=== PATIENT | male | born 1965 | race Caucasian/White ===

== ENCOUNTER 2022-06-23 11:16 | Inpatient (IN) | payer OTHER ==
[~2022-06-23] VITALS: Ht 172.7 cm; Wt 88.9 kg
[2022-06-23] VITALS (9 sets, daily range): BP systolic 97–160; BP diastolic 57–89
--- NOTE | 2022-06-23 11:18 | NUR ---
PT BIBA TO BED 7
--- NOTE | 2022-06-23 11:36 | NUR ---
RAD AT BEDSIDE
--- NOTE | 2022-06-23 11:38 | NUR ---
MD PUCKETT AT BEDSIDE FOR EVALUATION
--- NOTE | 2022-06-23 11:40 | NUR ---
54YO MALE PT BIBA D/T OVERDOSE. PER EMS, PT FOUND UNRESPONSIVE IN CAR AND GIVEN 0.5MG NARCAN INTRANASAL W/ IMPROVEMENT OF GCF 14. PD REPORTS UNKNOWN WHITE POWDER SUBSTANCE WAS FOUND IN PT CAR. AT ARRIVAL, PT AAOX3 W/ MUMBLED DELAYED SPEECH. AROUSABLE TO TOUCH AND VOICE. CONTINUED ON 4L VIA NC- O2 98%. 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 [place] [employer] AT BEDSIDE HX: DIABETES, HLD NKA Addendum: 06/23/22 at 1401 by [facility]P [place] [employer] OFFICER Denisse RICHARDSON #[id number] CASE #[id number]
[2022-06-23] MEDS ORDERED: NALOXONE 0.4 MG/ML VIAL IVP ONE ×3 (11:45→13:30)
--- NOTE | 2022-06-23 12:06 | NUR ---
pt encouraged to give urine sample. urinal provided
--- NOTE | 2022-06-23 12:38 | NUR ---
DRUG RESOURCE PACKET PROVIDED TO PT BY HUSSAIN BURNETT
--- NOTE | 2022-06-23 12:40 | NUR ---
PT SLEEPY YET EASILY AROUSABLE TO VOICE. RR 5-7. PT MEDICATED WITH NARCAN. PT ON CARDIAC/O2 MONITOR.
[2022-06-23] MEDS ORDERED: ED NON STOCK ORDER 1 EA MISC IV ONE (12:50)
[2022-06-23 12:59] LABS: BASOPHILS % (AUTO) 0.3 % (0.0-2.0); EOSINOPHILS % (AUTO) 0.3 % (0.0-4.0); HEMATOCRIT 40.5 % (36-52); HEMOGLOBIN 14.4 g/dL (12.0-18.0); LYMPHOCYTES # (AUTO) 1.7 K/uL (2.0-11.5); LYMPHOCYTES % (AUTO) 14.1 % (20.5-51.1); MEAN CORPUSCULAR HEMOGLOBIN 32 pg (27-31); MEAN CORPUSCULAR HGB CONC 35 g/dL (33-37); MEAN CORPUSCULAR VOLUME 89.3 fL (80-94); MONOCYTES # (AUTO) 0.7 K/uL (0.8-1.0); MONOCYTES % (AUTO) 5.7 % (1.7-9.3); NEUTROPHILS # (AUTO) 9.3 K/uL (1.8-7.7); NEUTROPHILS % (AUTO) 79.6 % (42.2-75.2); PLATELET COUNT (AUTO) 194 K/uL (140-450); RED BLOOD CELL COUNT(AUTO) 4.54 MIL/uL (4.20-6.10); RED CELL DISTRIBUTION WIDTH 13.5 % (11.6-13.7); WHITE BLOOD COUNT (AUTO) 11.7 K/uL (4.8-10.8)
[2022-06-23] MEDS ORDERED: ATOR80TA27 PO (13:10)
[2022-06-23] MEDS ORDERED: METF-713 PO (13:10)
[2022-06-23] MEDS ORDERED: GLIP10TA12 PO (13:10)
[2022-06-23] MEDS ORDERED: ONDANSETRON 4 MG/2 ML VIAL ONE (13:12)
[2022-06-23] MEDS ORDERED: ONDANSETRON 4 MG/2 ML VIAL IVP ONE (13:15)
[2022-06-23] MEDS ORDERED: NACL 0.9% 500 ML IV ONE (13:15)
--- NOTE | 2022-06-23 13:16 | NUR ---
PT NAUSEOUS AND DRY HEAVING. PT PROVIDED WITH EMESIS BAG AND MEDICATED WITH ZOFRAN. ALL NEEDS MET.
[2022-06-23 13:20] LABS: ALBUMIN 4.2 g/dL (3.4-5.0); ANION GAP 12.8 (8-16); CARBON DIOXIDE 27.6 mmol/L (21-32); POTASSIUM 3.4 mmol/L (3.5-5.1)
[2022-06-23] MEDS ORDERED: NALOXONE PFS IV SCH (13:30)
[2022-06-23] MEDS ORDERED: NACL 0.9% IV SCH (13:30)
--- NOTE | 2022-06-23 14:27 | NUR ---
pt taken to ct via rsim.
--- NOTE | 2022-06-23 14:27 | NUR ---
Gloria petty in ED - 06/23/22 at 1432 by [facility]SEP pt taken to ct via accompanied by ASHUTOSH.
--- NOTE | 2022-06-23 14:40 | NUR ---
pt brought back via dimple
[2022-06-23 15:06] LABS: BARBITURATE, URINE NEGATIVE ng/ml (NEG <=200); BENZODIAZEPINE, URINE NEGATIVE ng/mL (NEG <=200); CANNABINOID, URINE NEGATIVE ng/mL (NEG <=50); COCAINE, URINE NEGATIVE ng/mL (NEG <=300); OPIATE, URINE NEGATIVE ng/mL (NEG <=2000); PHENCYCLIDINE SCREEN,URINE NEGATIVE ng/mL (NEG <=25)
[2022-06-23] MEDS ORDERED: LORazepam 1 MG TAB PO PRN (15:30)
[2022-06-23] MEDS ORDERED: HYDROcodone/APAP 5/325 MG 1 TAB TAB PO PRN (15:30)
[2022-06-23] MEDS ORDERED: ONDANSETRON 4 MG/2 ML VIAL IVP PRN (15:30)
[2022-06-23] MEDS ORDERED: KCL 20 MEQ IN 100 mL PREMIX 200 ML IV PRN (15:30)
[2022-06-23] MEDS ORDERED: POTASSIUM CHLORIDE 10 MEQ TABER PO PRN (15:30)
[2022-06-23] MEDS ORDERED: MAG SULF 2000 MG/WATER PREMIX 50 ML IV PRN (15:30)
[2022-06-23] MEDS ORDERED: ACETAMINOPHEN 325 MG TAB PO PRN (15:30)
[2022-06-23] MEDS ORDERED: ZOLPIDEM 5 MG TAB PO PRN (15:30)
[2022-06-23] MEDS: NACL 0.9% 1,000 ML IV SCH (15:57)
--- NOTE | 2022-06-23 15:58 | NUR ---
PT TAKEN OFF NC. 98% RA.
--- NOTE | 2022-06-23 16:05 | NUR ---
Note malinda in EDM - 06/23/22 at 1852 by PH[facility]P Patient will be admitted to care of MD LEWIS. Admited to ICU. Will go to room 1. Belongings list completed. Report to BOLA BOYKIN .
--- NOTE | 2022-06-23 16:05 | NUR ---
Patient will be admitted to care of MD LEWIS. Admited to ICU. Will go to room 1. Belongings list completed. Report to MARCK BOYKIN .
--- NOTE | 2022-06-23 16:11 | NUR ---
PT ARRIVED TO ICU 1 VIA GURNEY. A/OX4, OPENS EYES SPONTANEOUSLY, PUPILS 2MM RESPONSIVE TO LIGHT. ROOM AIR, RESPIRATIONS EVEN AND UNLABORED. SR ON MONITOR. 18G IV TO L WRIST INFUSING NARCAN DRIP AT 250 ML/HR AND NS AT 80 ML/HR. NO EDEMA NOTED. VOIDS FREELY. NO ABD DISTENTION OR PAIN. PT DENIES ANY WOUNDS. SELF TURN. STANDARD PRECAUTION. HOB 30 DEGREES. BED LOCKED AND IN LOWEST POSITION.
--- NOTE | 2022-06-23 16:20 | NUR ---
SEEN AND EXAMINED BY DR. JANE AT BEDSIDE.
--- NOTE | 2022-06-23 17:00 | NUR ---
SEEN AND EXAMINED BY DR. LEWIS AT BEDSIDE.
[2022-06-23] MEDS ORDERED: DEXTROSE 50% 50 ML SYR IVP PRN (17:30)
--- NOTE | 2022-06-23 17:58 | NUR ---
Gloria petty in ED - 06/23/22 at 1855 by PHSEP PT TAKEN OFF NC. 98% RA.
--- NOTE | 2022-06-23 18:00 | NUR ---
The patient's care was reviewed and supervised by Tonya Block RN.
--- NOTE | 2022-06-23 18:22 | NUR ---
PT REPORTED PHONE NUMBER OF FRIEND, MARCELLE STONE, . PT WAS UNSURE IF THIS WAS THE CORRECT NUMBER. CALLED WITHOUT ANSWER AND LEFT MESSAGE.
[2022-06-23] MEDS: NALOXONE PFS IV SCH ×2 (18:38→23:24)
[2022-06-23] MEDS: NACL 0.9% IV SCH ×2 (18:38→23:24)
--- NOTE | 2022-06-23 19:14 | NUR ---
ENDORSED BEDSIDE REPORT TO JESSICA RECOIL SPRING WINDER RN, FOR CONTINUITY OF CARE.
--- NOTE | 2022-06-23 19:18 | NUR ---
RECEIVED REPORT FROM DAY SHIFT NURSE MARCK. VITALS: 98.7 F, HR 78, SPO2 97%, RR 12, BP 125/69 (84). PATIENT A&OX4, OPENS EYES SPONTANEOUSLY, AND FOLLOWS COMMANDS. PATIENT IS ON ROOM AIR, BREATHING IS EVEN AND UNLABORED. NSR. PATIENT CAN TURN SELF. SKIN IS INTACT. 18 GAUGE TO THE LEFT FOREARM RUNNING NARCAN 250ML/HR AND NS AT 80 ML/HR.
[2022-06-23] MEDS ORDERED: AZITHROMYCIN 500 MG in DEXTROSE 5% 250 ML IV SCH (20:00)
[2022-06-23] MEDS ORDERED: COMMUNICATION ORDER MC SCH (20:00)
[2022-06-23] MEDS: INSULIN LISPRO SLIDING SCALE 100 UNITS/ML VIAL SUBQ PRN (21:39)
[2022-06-23] MEDS: BLOOD GLUCOSE MONITORING 1 DEV DEV FS SCH (21:42)
[2022-06-24] VITALS (9 sets, daily range): BP systolic 100–142; BP diastolic 52–79
[2022-06-24] MEDS: NACL 0.9% 1,000 ML IV SCH (04:07)
[2022-06-24 06:10] LABS: BASOPHILS % (AUTO) 0.3 % (0.0-2.0); EOSINOPHILS # (AUTO) 0.1 K/uL (0-0.4); EOSINOPHILS % (AUTO) 0.9 % (0.0-4.0); HEMATOCRIT 32.4 % (36-52); HEMOGLOBIN 11.6 g/dL (12.0-18.0); LYMPHOCYTES # (AUTO) 1.4 K/uL (2.0-11.5); LYMPHOCYTES % (AUTO) 24.1 % (20.5-51.1); MEAN CORPUSCULAR HEMOGLOBIN 32 pg (27-31); MEAN CORPUSCULAR HGB CONC 36 g/dL (33-37); MONOCYTES # (AUTO) 0.5 K/uL (0.8-1.0); MONOCYTES % (AUTO) 8.6 % (1.7-9.3); NEUTROPHILS # (AUTO) 3.7 K/uL (1.8-7.7); NEUTROPHILS % (AUTO) 66.1 % (42.2-75.2); PLATELET COUNT (AUTO) 128 K/uL (140-450); RED BLOOD CELL COUNT(AUTO) 3.64 MIL/uL (4.20-6.10); RED CELL DISTRIBUTION WIDTH 13.3 % (11.6-13.7); WHITE BLOOD COUNT (AUTO) 5.7 K/uL (4.8-10.8)
[2022-06-24 06:36] LABS: ANION GAP 10.8 (8-16); CARBON DIOXIDE 24.9 mmol/L (21-32); CREATININE 0.7 mg/dL (0.6-1.3); POTASSIUM 3.7 mmol/L (3.5-5.1)
[2022-06-24] MEDS: BLOOD GLUCOSE MONITORING 1 DEV DEV FS SCH (07:30)
--- NOTE | 2022-06-24 07:30 | NUR ---
RECEIVED REPORT FROM FUNERAL DRIVER. PT IN BED WITH HOB ELEVATED. AWAKE AOX4, ABLE TO MAKE NEEDS KNOWN, FOLLOWS COMMANDS. NO C/O PAIN, NO SOB ON ROOM AIR. SR ON MONITOR. WITH LFA 18G RUNNING NS AT 80CC/HR. BED IN LOW POSITION. SAFETY PRECAUTIONS IN PLACE
[2022-06-24] MEDS: INSULIN LISPRO SLIDING SCALE 100 UNITS/ML VIAL SUBQ PRN (08:44)
[2022-06-24] MEDS ORDERED: DOCUSATE SODIUM 100 MG GELCAP PO SCH (09:00)
--- NOTE | 2022-06-24 09:00 | NUR ---
SEEN BY DR JOSHUA DC ORDERED
--- NOTE | 2022-06-24 09:26 | NUR ---
PATIENT HAS BEEN SCREENED AND CATEGORIZED MODERATE NUTRITION RISK. PATIENT WILL BE SEEN WITHIN 3-5 DAYS OF ADMISSION. REVIEWED BY NICOLASA CARDENAS RD
--- NOTE | 2022-06-24 09:51 | NUR ---
Patient discharged with v/s stable. Written and verbal after care instructions given and explained. Patient verbalized understanding. Ambulatory with steady gait. All questions addressed prior to discharge. Advised to follow up with PMD.
== END 2022-06-24 09:50 | disposition home or self-care (01) | DRG 812 ==
LOC: MED 11:16 → MTU 15:34 → MIC 15:53
PROVIDERS: ADMIT Internal Medicine; ATTEND Internal Medicine
DX: T40.2X1A Poisoning by other opioids, accidental (unintentional), initial encounter (principal); J96.01 Acute respiratory failure with hypoxia; G92.8 Other toxic encephalopathy; E11.65 Type 2 diabetes mellitus with hyperglycemia; E78.5 Hyperlipidemia, unspecified; Z20.822 Contact with and (suspected) exposure to COVID-19; Z79.899 Other long term (current) drug therapy; Z98.1 Arthrodesis status; Y92.89 Other specified places as the place of occurrence of the external cause; Z79.84 Long term (current) use of oral hypoglycemic drugs
CPT/HCPCS: 36415; 70450; 71045; 80048; 80053; 80305; 82948; 83735; 83880; 84484; 85025; 87081; 93005; 96361; 96374; 96375; 96376; 99291; G0482; J0456; J0696; J1644; J1815; J2310; J2405; J3475; J7030; J7060; Q0092